=== PATIENT | male | born 1995 | race Caucasian/White ===

== ENCOUNTER 2020-11-22 19:44 | Emergency (ER) | payer BC, SELFPAY ==
--- NOTE | ~2020-11-22 | XR_ITS ---
EXAMINATION: XR chest 2V DATE: 11/22/2020 20:25 INDICATION: Left-sided chest pain TECHNIQUE: PA and lateral views of the chest are obtained. COMPARISON: None available FINDINGS: The lungs are free of acute opacities. There is no pleural effusion or pneumothorax. The ca rdiomediastinal silhouette is normal. The visualized bones and soft tissues are unremarkable. IMPRESSION: 1. No acute cardiopulmonary abnormality. Reviewed, dictated and finalized at location A.
--- NOTE | 2020-11-22 19:54 | ED.CHESTPAIN ---
HPI - Chest Pain General Chief Complaint: Chest Pain Stated Complaint: Chest pain Time Seen by Provider: 11/22/20 19:54 Source: EMS History of Present Illness HPI narrative: Healthy 25 yo male presents to the ED for chest pain. Present since this morning. Located in left chest. Sharp in quality. Worse with lying flat and taking deep breaths. No SOB or other symptoms. Related Data Home Medications Medication Instructions Recorded Confirmed No Home Medications 11/22/20 11/22/20 Allergies Allergy/AdvReac Type Severity Reaction Status Date / Time No Known Allergies Allergy Verified 11/22/20 20:07 Review of Systems Review of Systems: All systems reviewed & are unremarkable except as noted in HPI and below Constitutional: Constitutional: Denies fever(s) ENT: Denies dizziness Gastrointestinal: Gastrointestinal: Denies abdominal pain and Denies nausea Musculoskeletal: Musculoskeletal: Denies back pain Neurologic: Denies numbness and Denies weakness [facility] Social History Social History (Updated 12/15/20 @ 17:04 by Octavio Santiago MD) Smoking status: Never smoker Exam Const: General: no acute distress Orientation/consciousness: patient oriented x3 HENMT: Head: normal to inspection Neck: Neck: normal visual inspection and no lymphadenopathy Chest: Chest palpation & inspection: no tenderness Resp: Effort & Inspection: normal respiratory effort Auscultation: clear to auscultation bilaterally, no rales, no rhonchi and no wheezes Cardio: Jugular venous distension: no JVD Rate: regular rate Rhythm: regular rhythm Heart sounds: no murmurs GI: Inspection: non-distended GI Palp: Yes Soft to palpation and No Tenderness to palpation present (GI) Skin: General skin exam: normal color Neuro: General: patient oriented x3 and moves all extremities Speech: normal speech Extrem: General: no edema Psych: Appearance: well kempt Affect: normal affect Course Vital Signs Vital signs: Vital Signs Temperature 37.2 C 11/22/20 19:58 Pulse Rate 77 11/22/20 19:58 Respiratory Rate 18 11/22/20 19:58 Blood Pressure 158/88 H 11/22/20 19:58 Pulse Oximetry 100 11/22/20 19:58 Temperature 37.2 C 11/22/20 19:58 Pulse Rate 64 11/22/20 22:17 Respiratory Rate 20 11/22/20 22:17 Blood Pressure 128/81 11/22/20 22:17 Pulse Oximetry 97 11/22/20 22:17 MDM - Chest Pain Differential Diagnosis Differential diagnosis: Likely pneumothorax, atypical chest pain, chest pain and other Medical Records Data Attestation: I reviewed the patient's medical records. Lab Data Attestation: I reviewed the patient's lab results. Result diagrams: 11/22/20 20:07 11/22/20 20:07 Labs: Lab Results 11/22/20 11/22/20 11/22/20 Range/Units 20:07 20:07 20:07 WBC 7.8 (4.5-10.0) K/mm3 RBC 4.94 (4.6-6.20) M/mm3 Hgb 15.4 (14.0-18.0) g/dL Hct 43.7 (42.0-52.0) % MCV 88.5 (80-100) fl MCH 31.2 (26-34) pg MCHC 35.2 (32-36) g/dl RDW 12.4 (11.5-14.5) % Plt Count 270 (150-375) k/mm3 MPV 9.7 (7.4-10.4) fl Immature Gran % (Auto) 0.3 (0-0.5) % Neut % (Auto) 40.1 L (45.5-73.1) % Lymph % (Auto) 37.8 (18.3-44.2) % [place] % (Auto) 10.8 H (2.6-8.5) % Eos % (Auto) 10.7 H (0-4.4) % Baso % (Auto) 0.3 (0.2-1.2) % Lymph # (Auto) 2.94 (0.9-3.2) K/mm3 [place] # (Auto) 0.8 H (0.1-0.6) K/mm3 Eos # (Auto) 0.8 H (0-0.3) K/mm3 Baso # (Auto) 0.0 (0.0-0.1) K/mm3 Abs Immat Gran (auto) 0.02 (0.00-0.031) K/mm3 Absolute Neuts (auto) 3.1 (1.3-6.7) K/mm3 Absolute Nucleated RBC 0.0 (0.0-0.012) K/mm3 Nucleated RBC % 0.0 (0.0-0.2) % PT 13.4 (11.1-14.7) Seconds INR 1.0 APTT 28.1 (22.3-36.8) SECONDS Sodium 138 (137-145) mmol/L Potassium 3.7 (3.4-5.0) mmol/L Chloride 103 (98-107) mmol/L Carbon Dioxide 29 (22-30) mmol/L Anion Gap 6 L (8-16) mmol/L BUN
--- NOTE | 2020-11-22 19:57 | ECG_ITS ---
Measurements Intervals [place] Rate: 72 P: 58 MT: 126 QRS: 21 QRSD: 105 T: 26 QT: 382 QTc: 421 Interpretive Statements SINUS RHYTHM BASELINE ARTIFACT- I, II, III, AVR, AVL, AVF, V3-V6 BORDERLINE ECG Electronically Signed On 11-22-2020 21:00:03 CDT by Stephan King D.O.
[2020-11-22 19:58] VITALS: BP 158/88; PULSE 77; PULSE 86; RESP 18; TEMP 37.2; O2SAT 100
[2020-11-22 20:02] VITALS: BP 158/88; PULSE 75; RESP 15; O2SAT 100
[2020-11-22 20:12] LABS: Basophils Percent Auto 0.3 % (0.2-1.2); Eosinophils Absolute Auto 0.8 K/mm3 (0-0.3); Eosinophils Percent Auto 10.7 % (0-4.4); Hematocrit 43.7 % (42.0-52.0); Hemoglobin 15.4 g/dL (14.0-18.0); Immature Granulocyte Absolute 0.02 K/mm3 (0.00-0.031); Immature Granulocyte Percent A 0.3 % (0-0.5); Lymphocytes Absolute Auto 2.94 K/mm3 (0.9-3.2); Lymphocytes Percent Auto 37.8 % (18.3-44.2); Mean Corpuscular HGB Conc 35.2 g/dl (32-36); Mean Corpuscular Hemoglobin 31.2 pg (26-34); Mean Corpuscular Volume 88.5 fl (80-100); Mean Platelet Volume 9.7 fl (7.4-10.4); Monocytes Absolute Auto 0.8 K/mm3 (0.1-0.6); Monocytes Percent Auto 10.8 % (2.6-8.5); Neutrophils Absolute Auto 3.1 K/mm3 (1.3-6.7); Neutrophils Percent Auto 40.1 % (45.5-73.1); Platelet Count Result 270 k/mm3 (150-375); Red Blood Count 4.94 M/mm3 (4.6-6.20); Red Cell Distribution Width 12.4 % (11.5-14.5); White Blood Count 7.8 K/mm3 (4.5-10.0)
--- NOTE | 2020-11-22 20:20 | PC.NURSE ---
Pt to imaging at this time.
[2020-11-22 20:22] LABS: Partial Thromboplastin Time 28.1 SECONDS (22.3-36.8); Prothrombin Time 13.4 Seconds (11.1-14.7)
[2020-11-22 20:24] LABS: Anion Gap 6 mmol/L (8-16); Blood Urea Nitrogen 17 mg/dL (9-20); Calcium 10.4 mg/dL (8.4-10.2); Carbon Dioxide 29 mmol/L (22-30); Chloride 103 mmol/L (98-107); Estimated Glomerular Filt Rate > 60; Glucose 102 mg/dL (75-110); Potassium 3.7 mmol/L (3.4-5.0); Sodium 138 mmol/L (137-145)
[2020-11-22 20:28] VITALS: BP 140/83; PULSE 69; RESP 17; O2SAT 98
[2020-11-22 20:31] VITALS: BP 134/89; PULSE 75; RESP 19; O2SAT 98
[2020-11-22 20:36] LABS: Troponin I < 0.012 ng/mL (0.000-0.034)
[2020-11-22] MEDS: ASPIRIN 81 MG CHEWABLE TABLET 324 MG PO (20:58)
[2020-11-22 21:31] VITALS: BP 135/79; PULSE 68; RESP 19; O2SAT 97
[2020-11-22 22:17] VITALS: BP 128/81; PULSE 64; RESP 20; O2SAT 97
== END 2020-11-22 22:19 | disposition home or self-care (01) ==
PROVIDERS: Emergency Provider Emergency Medicine
DX: R07.89 Other chest pain (principal); R94.31 Abnormal electrocardiogram [ECG] [EKG]
CPT/HCPCS: 36415; 71046; 80048; 84484; 85025; 85610; 85730; 93005; 99284; A9270

== ENCOUNTER 2020-12-31 10:23 | Emergency (ER) | payer BC, SELFPAY ==
[2020-12-31 10:30] VITALS: BP 140/84; PULSE 64; RESP 12; TEMP 36.8; O2SAT 100
--- NOTE | 2020-12-31 10:46 | ED.ASTHMA ---
HPI - Asthma General Chief Complaint: Upper Respiratory Infection Stated Complaint: difficulty breathing Time Seen by Provider: 12/31/20 10:46 Source: patient Mode of arrival: ambulatory Limitations: no limitations History of Present Illness HPI Narrative: Iván Talbot is a 25 yo male who was on [employer] in a field for 2 weeks and rounded respiratory difficulty. He has asthma that is by his account relatively well controlled with occasional use of rescue inhaler except in fall and spring when there is a lot of pollen in the air. He got to the point that he was having difficulty catching his breath on exertion, but [facility] Is currently congested and normally can control his subacute symptoms with Nava-D which is not working presently Related Data Home Medications Medication Instructions Recorded Confirmed No Home Medications 11/22/20 11/22/20 Allergies Allergy/AdvReac Type Severity Reaction Status Date / Time No Known Allergies Allergy Verified 11/22/20 20:07 Review of Systems Review of Systems: Narrative: CONSTITUTIONAL: Denies fever, chills, sweats. EYES: Denies visual changes, redness, discharge. ENT: Denies rhinorrhea, congestion, sore throat, otalgia. CARDIOVASCULAR: Denies chest pain, palpitations, edema. RESPIRATORY: Denies dyspnea, wheezing, cough-needs a refill for rescue inhaler GASTROINTESTINAL: Denies abdominal pain, nausea, vomiting, diarrhea. GENITOURINARY: Denies dysuria, hematuria, abnormal discharge SKIN: Denies rash or itching. NEUROLOGIC: Denies numbness, or focal weakness. PSYCHIATRIC: Denies anxiety or depression. PMFSH Past Medical History Medical History (Updated 12/31/20 @ 11:02 by Denisse Mc CNP) Asthma Social History Social History (Updated 12/31/20 @ 10:57 by Denisse Mc CNP) Smoking status: Never smoker Alcohol intake: current Comments At time of signature, I agree with nursing past medical, surgical, social and family history. There is no relevant family history pertinent to the presenting complaint. Exam Narrative: Exam Narrative: GENERAL: This is a well-nourished, well-developed patient, in no distress. HEAD: normocephalic, atraumatic. EYES:Sclera clear/white. Vision is grossly intact. EARS: External ears normal. Hearing grossly intact. NOSE: External nose normal without nasal discharge, nares without redness, no rhinorrhea. THROAT: Mucous membranes moist, NECK: Neck supple, CARDIOVASCULAR: Regular rate and rhythm without murmurs, gallops, or rubs. RESPIRATORY: Clear to auscultation. Breath sounds equal bilaterally. No wheezes, rales, or rhonchi. Patient is congested and is currently taking Nava-D GASTROINTESTINAL: Abdomen soft, SKIN: warm, intact with no suspicious lesions or rash, good texture and turgor. NEURO: awake, alert, and oriented to person, place and time. There were no obvious focal neurologic abnormalities. Steady gait EXTREMITIES: Normal range of motion. BACK: Nontender without deformity Course Course Emergency Course: Patient comes in need of rescue inhaler after having an asthma exacerbation on [employer] Given normal inhaler with 1 refill in addition given prednisone 20 mg tablets #20-take these if necessary when he is away from medical care but he does need to get an primary care physician retired and he has not seen anybody recently Vital Signs Vital signs: Vital Signs Temperature 98.3 F 12/31/20 10:30 Pulse Rate 64 12/31/20 10:30 Respiratory Rate 12 12/31/20 10:30 Blood Pressure 140/84 12/31/20 10:30 Pulse Oximetry 100 12/31/20 10:30 Temperature 98.3 F 12/31/20 10:30 Pulse Rate 64 12/31/20 10:30 Respiratory Rate 12 12/31/20 10:30 Blood Pressure 140/84 12/31/20 10:30 Pulse Oximetry 100 12/31/20 10:30 MDM - Asthma Differential Diagnosis Differential diagnosis: Likely other (Subacute asthma, prescription refill) Critical Care [facility]
== END 2020-12-31 11:15 | disposition home or self-care (01) ==
PROVIDERS: Emergency Provider Nurse Practitioner
DX: J45.20 Mild intermittent asthma, uncomplicated (principal)
CPT/HCPCS: 99213; G0463